=== PATIENT | female | born 1970 | race Caucasian/White ===

== ENCOUNTER 2025-02-14 11:23 | Emergency (ER) | payer SELFPAY ==
[2025-02-14] VITALS (7 sets, daily range): BP systolic 126–140; BP diastolic 69–84; PULSE 95–105; RESP 19–21; TEMP 36.6–37.2; O2SAT 94–98; BMI 29.6
--- NOTE | 2025-02-14 12:01 | EDS_ITS ---
HPI History of Present Illness Chief Complaint: Shortness of Breath Narrative Narrative: Patient is a 54-year-old female past medical history asthma, COPD who presented to the emergency department the chief complaint of cough and shortness of breath. Patient states that for the past 4 days she has been not feeling well she states that she went to urgent care for evaluation and a work note and they state that she needed to come to the emergency department to be evaluated as she was too sick to be evaluated there. Patient states that she has had a dry cough not coughing up anything. Patient denies recent travels denies any history of blood clots. Patient denies any recent steroid use. [facility] Medical History (Updated 02/14/25 @ 13:[address] Tony Booth, ) Asthma COPD (chronic obstructive pulmonary disease) Home Medications ?Medication ?Instructions ?Recorded ?Last Taken ?Type albuterol sulfate 90 mcg/actuation 2 puff inhalation Q 6H PRN 02/14/25 Unknown Rx aerosol inhaler shortness of breath or wheez ing #8.5 grams prednisone 50 mg tablet 50 mg PO DAILY 4 days #4 tab s 02/14/25 Unknown Rx Allergy/AdvReac Type Severity Reaction Status Date / Time codeine Allergy Severe Anaphylaxis Verified 02/14/25 11:28 oxycodone (From OxyContin) AdvReac Severe Bleeding Verified 02/14/25 11:28 morphine AdvReac Intermediate Nausea/Vom/ Verified 02/14/25 11:28 Diarrhea Social History Smoking Status: Never smoker ROS ROS ED ROS Narrative Constitutional: Patient states that she had a fever last night denies any chills, whole body aches Cardiovascular: Denies chest pain or palpitations Respiratory: Complains of cough and shortness of breath as noted above Abdomen: Denies nausea vomit diarrhea : Denies any urinary symptoms Neurological: Denies numbness, weakness, tingling Musculoskeletal: Denies back pain Skin: Denies rashes or lesions EXAM Physical Exam Narrative Exam Narrative: General: Patient was lying in bed rest comfortably did not appear to be in acute distress Head: Atraumatic, normocephalic Eyes: PERRL bilateral, EOMI bilateral, no conjunctival injection noted Neck: Soft, supple, trach midline Cardiovascular: Patient tachycardic with regular rhythm no murmurs gallops rubs noted Respiratory: Diminished breath sounds bilaterally Abdomen: Soft, nondistended, tender to palpation Extremities: +5/5 strength noted in the bilateral upper and lower extremities, radial pulses +2/4 in the bilateral extremities Neurological: Patient follow commands knew that she was at [facility] year is 2024 Skin: Warm, dry, intact no rashes or lesions noted Const Vital Signs: 02/14/25 11:25 02/14/25 12:08 02/14/25 12:08 Temperature 98.9 F Temperature Source Oral Pulse Rate 105 H 95 Respiratory Rate 21 H 20 H Respiratory Effort Respiratory Depth Respiratory Pattern Normal Blood Pressure 126/84 H Blood Pressure Mean 98 Pulse Ox 94 98 Oxygen Delivery Method Room Air Room Air 02/14/25 12:13 02/14/25 12:27 02/14/25 12:27 Temperature 98 F Temperature Source Oral Pulse Rate 96 96 Respiratory Rate 20 H 20 H Respiratory Effort Short of Breath Respiratory Depth Normal Respiratory Pattern Tachypnea Blood Pressure 136/79 H 136/79 H Blood Pressure Mean 98 98 Pulse Ox 96 96 Oxygen Delivery Method 02/14/25 13:00 02/14/25 13:38 Temperature 98 F 97.9 F Temperature Source Oral Pulse Rate 96 104 H Respiratory Rate 20 H 19 H Respiratory Effort Respiratory Depth Respiratory Pattern Blood Pressure 136/69 H 140/73 H Blood Pressure Mean 91 95 Pulse Ox 96 95 Oxygen Delivery Method MDM MDM MDM Narrative Medical decision making narrative: Patient is a 54-year-old female who presented to the emergency department with a chief complaint of cough and shortness of breath. On the differential diagnosis includes but limited to COPD exacerbation, pneumonia, upper respiratory infection secondary viral etiology, ACS. Once workup is obtained reviewed she will be reevaluated. Patient be given DuoNebs and prednisone as well as 30 cc/kg bolus of IV fluids based on ideal body weight as her BMI is 30. Patient CBC was reviewed showed no evidence leukocytosis white blood count normal at 7.2, hemoglobin is 14, platelet count was noted be 258. Patient INR normal at 0.9, PT of 12.6. Patient sodium normal 141, potassium normal at 4, creatinine normal at 0.70. Patient AST and ALT were 20 and 15 respectively. Patient's EKG was reviewed and showed sinus rhythm with a rate of 91 beats per minutes. Patient's chest x-ray reviewed and showed subtle mild bilateral linear interstitial lines can be seen with viral pneumonia otherwise unremarkable chest x-ray this reviewed by myself and by radiology. Patient tested negative for COVID flu and RSV. However I do have suspicion that the patient likely has croup given the nature of her cough clinically. Patient ambulated well here in the emergency department no hypoxia and felt well at her baseline. On reevaluation patient she is feeling better she would like to go home at this point time. She will be given a prescription for prednisone as well as albuterol inhaler and will be referred to a primary care physician. She was encouraged return with worsening symptoms or concerns. She is agreeable to plan all question concerns answered she discharged home in stable condition. Patient is requesting work note which was provided. Lab Data Labs: Laboratory Results - last 24 hr 02/14/25 12:05 WBC 7.2 RBC 4.38 Hgb 14.0 Hct 42.9 MCV 97.9 MCH 32.0 MCHC 32.6 RDW Std Deviation 42.1 RDW Coeff of Mayank 11.6 Plt Count 258 MPV 10.2 Immature Gran % (Auto) 0.400 Neut % (Auto) 58.0 Lymph % (Auto) 26.4 [place] % (Auto) 11.6 H Eos % (Auto) 3.2 Baso % (Auto) 0.4 Absolute Neuts (auto) 4.2 Absolute Lymphs (auto) 1.89 Nucleated RBC % 0 PT 12.6 INR 0.9 APTT 25.2 Sodium 141 Potassium 4.0 Chloride 105 Carbon Dioxide 25.1 Anion Gap 11 BUN 11 Creatinine 0.70 Estim Creat Clear Calc 105.68 Est GFR (MDRD) Non-Af 102 BUN/Creatinine Ratio 15.4 Glucose 111 H Lactic Acid < 1.0 Calcium 9.2 Total Bilirubin 0.30 AST 20 ALT 15 Alkaline Phosphatase 131 H Total Protein 7.5 Albumin 4.2 Globulin 3.3 Albumin/Globulin Ratio 1.3 Radiography Diagnostic Testing: Clinical Impression(s) from Imaging Studies Chest X-Ray 02/14/25 12:20 IMPRESSION: Subtle mild bilateral linear interstitial lines, which can be seen with viral pneumonia. Otherwise unremarkable chest radiograph. Reading Location: [facility] Discharge Plan Triage Chief Complaint: Shortness of Breath Other Complaint: Cold Sx ED Provider: Tony Booth Dx/Rx/DC Orders Clinical Impression: Upper respiratory infection, viral, History of asthma Prescriptions: New prednisone 50 mg tablet 50 mg PO DAILY 4 Days Qty: 4 0RF albuterol sulfate 90 mcg/actuation HFA aerosol inhaler 2 puff inhalation Q6H PRN (Reason: shortness of breath or wheezing) Qty: 8.5 0RF Stand Alone Forms: ED Work / School Excuse Primary Care Provider: Care Physician,No Primary Referrals: Care Physician,No Primary [Primary Care Provider] - Rae Moses, FLOOR NURSE-C [[facility]] - Activity Restrictions/Additional Instructions: Follow-up with the doctor you referred to. Take steroids as prescribed that was sent to your pharmacy and use inhaler as prescribed as well. Return with worsening symptoms or any other concerns Print Language: Cape Verdean Disposition Disposition: Home, Self Care
[2025-02-14] MEDS: Ipratropium/Albuterol Sulfate 3 ML AMPUL.NEB INHALATION ×2 (12:05)
[2025-02-14] MEDS: 0.9% Normal Saline (1000mL) 1,000 ML 999 ML IV (12:06)
[2025-02-14] MEDS: predniSONE 20 MG Tablet 60 MG PO (12:07)
[2025-02-14 12:18] LABS: Absolute Lymphocyte Count 1.89 X10^3/uL (0.83-4.51); Absolute Neutrophil Count 4.2 X10^3/uL (2.0-7.7); Basophil# 0.03 X10^3/uL; Basophil% 0.4 % (0-1); Eosinophil# 0.23 X10^3/uL; Eosinophils% 3.2 % (0-5); Hematocrit 42.9 % (37-47); Lymphocyte # 1.89 X10^3/ul (0.83-4.51); Lymphocyte % 26.4 % (19-41); Mean Corp Hgb Conc 32.6 g/dL (32-36); Mean Corpuscular Volume 97.9 fL (81-99); Mean Platelet Vol. 10.2 fl (6.2-12.0); Monocyte# 0.83 X10^3/uL; Monocyte% 11.6 % (0-10); NRBC Flagged by Analyzer 0 % (0-5); Neutrophil # 4.15 X10^3/uL (2.7-7.7); Platelet Count 258 K/mm3 (150-450); RBC Distribution Width CV 11.6 % (11.6-14.6); RBC Distribution Width SD 42.1 fl (35.1-43.9); Red Blood Count 4.38 M/mm3 (4.2-5.4); White Blood Count 7.2 K/mm3 (4.4-11.0)
--- NOTE | 2025-02-14 12:20 | RAD_ITS ---
PROCEDURE: CHEST PA AND LATERAL 02/14/2025 REASON FOR EXAM: SOB, COUGH TECHNIQUE: Frontal and lateral views of the chest. COMPARISON: None. FINDINGS: Hardware: None. Heart: The heart size is normal. Mediastinum: The mediastinal contour is unremarkable. Lungs: Subtle mild bilateral linear interstitial lines, greatest within the lower lobes. No pleural effusion or pneumothorax. Bones: Degenerative changes are identified within the thoracic spine. RAD/Chest PA and Lateral IMPRESSION: Subtle mild bilateral linear interstitial lines, which can be seen with viral p neumonia. Otherwise unremarkable chest radiograph. Reading Location: [id number]
[2025-02-14 12:26] LABS: International Normalized Ratio 0.9; Partial Thromboplast Time 25.2 Seconds (24.1-36.2); Prothrombin Time (Protime)PT. 12.6 SECONDS (11.7-14.9)
[2025-02-14 12:50] LABS: ALB/GLOB Ratio 1.3 RATIO (0.9-2.4); AST(SGOT) 20 U/L (<=31); Alanine Aminotransfer ALT/SGPT 15 U/L (<=34); Albumin, Serum 4.2 g/dL (3.5-5.0); Alkaline Phosphatase 131 U/L (35-104); Anion Gap 11 (5-15); BUN 11 mg/dL (4-19); BUN/Creat Ratio 15.4 RATIO (10-20); Calcium,Total 9.2 mg/dL (7.6-11.0); Carbon Dioxide 25.1 mmol/L (21.0-32.0); Chloride 105 mmol/L (98-108); EST Glomerular Filtration Rate 102 (>60); Estimated Creatinine Clearance 105.68 ml/min (50-250); Globulin 3.3 g/dL (2.2-4.2); Glucose 111 mg/dL (70-99); Protein, Total 7.5 g/dL (5.9-8.4); Sodium Level 141 mmol/L (133-145)
[2025-02-14 13:18] LABS: Lactic Acid < 1.0 mmol/L (0.0-2.0)
== END 2025-02-14 14:09 | disposition home or self-care (01) ==
PROVIDERS: Emergency Provider Emergency Medicine; Referring Provider Emergency Medicine; Visit Provider Emergency Medicine
DX: J06.9 Acute upper respiratory infection, unspecified (principal); J44.9 Chronic obstructive pulmonary disease, unspecified
CPT/HCPCS: 71046; 80053; 83605; 85025; 85610; 85730; 87040; 87631; 93005; 96360; 99285; A4216

== ENCOUNTER 2025-05-29 15:54 | Emergency (ER) | payer SELFPAY ==
[2025-05-29 15:57] VITALS: BP 150/83; PULSE 119; RESP 14; TEMP 36.3; O2SAT 100; BMI 30.9
--- NOTE | 2025-05-29 15:57 | EKG12_ITS ---
Test Reason : Blood Pressure : */* mmHG Vent. Rate : 122 BPM Atrial Rate : 122 BPM P-R Int : 144 ms QRS Dur : 76 ms QT Int : 344 ms P-R-T Axes : 62 -29 30 degrees QTcB Int : 490 ms Sinus tachycardia Possible Left atrial enlargement Minimal voltage criteria for LVH, may be normal variant ( R in aVL ) Borderline ECG Confirmed by MAYCO KARIMI, KT ([id number]), film and video editor JHONY ROMO ([id number]) on 05/30/2025 9:29:16 AM Referred By: Confirmed By: KT MAO MD
[2025-05-29 16:02] VITALS: BP 124/72; PULSE 111; RESP 21; TEMP 36.5; O2SAT 98
--- NOTE | 2025-05-29 16:10 | EDS_ITS ---
HPI History of Present Illness Chief Complaint: Shortness of Breath Detail of Chief Complaint: Shortness of breath that started at work. Informant: patient and EMS Onset/Context/Timing Onset: Today (Awoke not feeling well. She has used her inhaler 4 times since awakening. She reports no improvement.) Context: sudden Timing: Continuous Quality: Positive for Dyspnea on exertion; Negative for Orthopnea, PND or Wheezing Current Severity: Mild Maximum Severity: Moderate Associated Symptoms cough; Negative for rhinorrhea, post nasal drip, ear pain, fever, sore throat, subjective, chills, sweats, clear sputum, white sputum, yellow sputum or green sputum Chest Pain: Positive for None Narrative Narrative: Patient is a 55-year-old woman who states she has a history of COPD. She has not smoked since age of 12. She nods no to fever or chills. She nods no to rhinorrhea, congestion, postnasal drip and sore throat. She does endorse shortness of breath and nonproductive cough. She has no history of PE or DVT. She has no history degree of cardiac symptoms. She has no history of hypertension. She has no history of reflux. She denies leg pain, swelling or discoloration. She denies any type of pain in her chest or abdomen. PE Risk Factors: Negative for Cancer, OCP + Smoking + > 35, Prior DVT or PE, Recent immobilization, Recent surgery or Recent travel Prior similar symptoms: Yes (COPD) Recent Illness/Hospitalization: No [facility] Medical History Asthma COPD (chronic obstructive pulmonary disease) Home Medications ?Medication ?Instructions ?Recorded ?Last Taken ?Type albuterol sulfate 90 mcg/actuation 2 puff inhalation Q 6H PRN 02/14/25 Unknown Rx aerosol inhaler shortness of breath or wheez ing #8.5 grams diphenhydramine HCl 50 mg tablet 50 mg PO TID 05/29/25 Unknown History (Benadryl Allergy) melatonin 10 mg capsule 10 mg PO QHS 05/29/25 Unknow n History Allergy/AdvReac Type Severity Reaction Status Date / Time codeine Allergy Severe Anaphylaxis Verified 02/14/25 11:28 oxycodone (From OxyContin) AdvReac Severe Bleeding Verified 02/14/25 11:28 morphine AdvReac Intermediate Nausea/Vom/ Verified 02/14/25 11:28 Diarrhea Social History (Updated 05/29/25 @ 16:[address] Ross Rahman MD) household members: none Smoking Status: Never smoker ROS ROS ED Constitutional Constitutional ED: Denies chills, fever(s), sweats or weight loss Eyes Eyes: Denies blurry vision or change in vision ENT ENT ED: Denies ear pain, rhinorrhea or sore throat Cardiovascular Cardiovascular: Denies chest pain, orthopnea, palpitations, paroxysmal nocturnal dyspnea or racing heartbeat Respiratory/Chest Respiratory/Chest: Reports cough, dyspnea and dyspnea on exertion; Denies orthopnea, paroxysmal nocturnal dyspnea or sputum Gastrointestinal Gastrointestinal: Denies abdominal pain, constipation, diarrhea, melena, nausea or vomiting Musculoskeletal Musculoskeletal: Denies arthralgias or myalgias Integumentary Denies rash Neurologic Neurologic: Denies paresthesias or weakness Endocrine Endocrinology: Denies cold intolerance or heat intolerance Hematologic/Lymphatic Hematologic/Lymphatic: Denies easy bleeding or easy bruising EXAM Physical Exam Const Vital Signs: 05/29/25 15:57 05/29/25 16:02 05/29/25 16:25 Temperature 97.4 F L 97.7 F L Temperature Source Oral Oral Pulse Rate 119 H 111 H Respiratory Rate 14 21 H Respiratory Effort Short of Breath Labored Respiratory Depth Normal Respiratory Pattern Normal Blood Pressure 150/83 H 124/72 H Blood Pressure Mean 105 89 Pulse Ox 100 98 Oxygen Delivery Method Room Air Room Air Room Air 05/29/25 17:02 05/29/25 18:00 Temperature 97.8 F 98.1 F Temperature Source Oral Oral Pulse Rate 101 H 99 Respiratory Rate 17 14 Respiratory Effort Respiratory Depth Respiratory Pattern Blood Pressure 119/79 112/91 H Blood Pressure Mean 92 98 Pulse Ox 101 100 Oxygen Delivery Method Room Air Room Air Positive well nourished Constitutional Narrative: Vital signs are noted. Patient is breathing much more rapidly than 14 times a minute. She is not hypoxic. She is tachycardic. Her blood pressure is elevated as well. She seems slightly anxious. General Appearance ED: Negative for pallor HEENT Reports moist mucous membranes HEENT Narrative: Head is atraumatic no cephalic. Ears normal. Nares patent. Posterior pharynx is normal. Eyes PERRL and EOMs intact bilaterally General Eye ED: Negative for pale conjunctiva or scleral icterus Neck no lymphadenopathy, supple, no meningeal signs and no JVD Neck Narrative: Trachea is midline. Patient has dysphonia. There is no inspiratory expiratory stridor. Resp normal respiratory effort and clear to auscultation bilaterally Auscultation: Negative for diminished lung sounds Cardio regular rhythm, S1 normal heart sound, S2 normal heart sound and no murmurs Rate: tachycardic GI non-tender, non-distended and no masses Auscultation: normoactive bowel sounds Palpation: soft Back/Spine no CVA tenderness and normal to inspection Extremity normal to inspection Extremity Narrative: There is no asymmetry, swelling, discoloration, leg vein distention, palpable cords or tenderness along the distribution of the deep venous system. Neuro oriented x3, CN's II-XII intact bilaterally and no sensory deficits noted Sensorium / Orientation: alert Psych mental status grossly normal Mood & Affect: anxious Skin no wounds and skin turgor normal General Skin Exam: Negative for jaundice or pallor Lesions: no lesions Rashes: no rashes MDM MDM MDM Narrative Medical decision making narrative: Patient presents with dyspnea. Since she is tachycardic and tachypneic and greater the age of 55 she is not PERC negative. Will obtain a D-dimer. Patient's lungs are clear to auscultation. Breath sounds are symmetric. Will obtain chest x-ray to evaluate for possible pneumothorax, spontaneous. This may represent anginal equivalent. With her having dysphonia specked this is probably a viral illness. However would not expect her to be tachycardic tach ypneic especially with no abnormal oscillatory findings of her lungs. Only visit to [facility] was January of this year. She was seen by Dr. Tony Booth for upper respiratory tract infection. History & Record Review Additional record(s) reviewed:: Prior ED visit and Prior labs Lab Data Attestation: I reviewed the patient's lab results. Lab results narrative: CBC is unremarkable. Return of neutrophils is below normal and monocytes is elevated. Labs: Laboratory Results - last 24 hr 05/29/25 05/29/25 05/29/25 16:10 16:45 18:05 WBC 6.0 RBC 4.51 Hgb 14.4 Hct 43.6 MCV 96.7 MCH 31.9 MCHC 33.0 RDW Std Deviation 42.5 RDW Coeff of Mayank 12.0 Plt Count 272 MPV 10.9 Immature Gran % (Auto) 0.200 Neut % (Auto) 42.2 L Lymph % (Auto) 41.0 [place] % (Auto) 13.2 H Eos % (Auto) 2.7 Baso % (Auto) 0.7 Absolute Neuts (auto) 2.5 Absolute Lymphs (auto) 2.45 Nucleated RBC % 0 D-Dimer Quant (PE/DVT) Cancelled 0.27 Sodium 142 Potassium 4.4 Chloride 104 Carbon Dioxide 23.4 Anion Gap 15 BUN 15 Creatinine 0.77 Estim Creat Clear Calc 96.87 Est GFR (MDRD) Non-Af 90 BUN/Creatinine Ratio 19.6 Glucose 148 H Calcium 10.0 Troponin T High Sens 6 Troponin T Hi Sens 2 Hr 7 Your troponin is normal at 7 with a delta of 1. 2 normal troponin levels normal delta normal EKG cardiac etiology has been ruled out. Suspect this is due to a viral upper respiratory infection. Radiography Chest X-Ray - ED: 2 View, Read by ED Physician, Normal, Heart, Lungs (Minimal chronic changes at best. There is no effusion, infiltrate or pneumothorax.), M ediastinum, Bony Structures and No Acute Disease EKG Initial EKG: Attestation: I personally reviewed and interpreted this EKG as follows: Interpretation: Sinus Tachycardia (Rate is 122. Borderline LVH by voltage criteria. ME interval is 144. QRS duration 76 ms. QT duration 244 ms. [place] is normal. EKG is suggestive of left atrial enlargement as well.) Discharge Plan Triage Chief Complaint: Shortness of Breath ED Provider: Ross Rahman Dx/Rx/DC Orders Clinical Impression: Acute viral laryngitis, Sinus tachycardia, Acute dyspnea, History of asthma, Elevated blood-pressure reading without diagnosis of hypertension Instructions: ED Hypertension, To Be Confirmed, ED Laryngitis, ED URI, Viral, No Abx (Adult) Prescriptions: No Action albuterol sulfate 90 mcg/actuation HFA aerosol inhaler 2 puff inhalation Q6H PRN (Reason: shortness of breath or wheezing) Qty: 8.5 0RF melatonin 10 mg capsule 10 mg PO QHS Benadryl Allergy 50 mg tablet 50 mg PO TID Stand Alone Forms: ED Work / School Excuse Primary Care Provider: Care Physician,No Primary Referrals: Care Physician,No [facility] - 3-5 Days if not improving Print Language: Mongolian Disposition Disposition: Home, Self Care
--- NOTE | 2025-05-29 16:15 | RAD_ITS ---
PROCEDURE: CHEST PA AND LATERAL 05/29/2025 REASON FOR EXAM: SHORTNESS OF BREATH, TACHYCARDIA TECHNIQUE: CHEST PA AND LATERAL COMPARISON: 02/14/2025. FINDINGS: The heart is normal in size. The lungs are clear. No pleural effusion or pneumothorax. No acute osseous abnormalities. RAD/Chest PA and Lateral IMPRESSION: No acute cardiopulmonary abnormalities. Reading Location: [id number]
[2025-05-29 16:25] VITALS: O2SAT 100
[2025-05-29 16:37] LABS: Hematocrit 43.6 % (37-47); Hemoglobin 14.4 g/dL (12.0-15.0); Immature Granulocytes Count 0.010 X10^3/uL (0.0-0.0); Mean Corp Hgb Conc 33.0 g/dL (32-36); Mean Corpuscular Volume 96.7 fL (81-99); Mean Platelet Vol. 10.9 fl (6.2-12.0); NRBC Flagged by Analyzer 0 % (0-5); Platelet Count 272 K/mm3 (150-450); RBC Distribution Width CV 12.0 % (11.6-14.6); RBC Distribution Width SD 42.5 fl (35.1-43.9); Red Blood Count 4.51 M/mm3 (4.2-5.4); White Blood Count 6.0 K/mm3 (4.4-11.0)
[2025-05-29 16:59] LABS: Anion Gap 15 (5-15); BUN 15 mg/dL (4-19); BUN/Creat Ratio 19.6 RATIO (10-20); Calcium,Total 10.0 mg/dL (7.6-11.0); Carbon Dioxide 23.4 mmol/L (21.0-32.0); Chloride 104 mmol/L (98-108); Estimated Creatinine Clearance 96.87 ml/min (50-250); Glucose 148 mg/dL (70-99); Potassium 4.4 mmol/L (3.3-5.1); Troponin T High Sensitivity 6 ng/L (<=14)
[2025-05-29 17:02] VITALS: BP 119/79; PULSE 101; RESP 17; TEMP 36.6; O2SAT 101
--- NOTE | 2025-05-29 17:11 | CM.ED ---
Social Work SW was notified that patient had questions regarding her medicaid application. SW entered room and introduced self to patient. Patient stated that she had moved into [facility] from another [facility], [facility] and did not know that her medicaid had . Patient states that she has applied twice online but has not heard from anyone. SW provided patient with the phone number and address to [facility] to help patient follow up with application. Patient was thankful for information. No further needs identified at this time. Edie Howard, NURSE RECRUITER, SPECIAL EVENTS DRIVER
[2025-05-29 17:15] LABS: D-Dimer Quantitative (DVT/PE) 0.27 FEU/ug/m (0.27-0.49)
[2025-05-29 18:00] VITALS: BP 112/91; PULSE 99; RESP 14; TEMP 36.7; O2SAT 100
[2025-05-29 18:33] LABS: Troponin T High Sens 2 HR 7 ng/L (<=14)
[2025-05-29 18:44] VITALS: BP 113/84; PULSE 94; RESP 19; TEMP 36.9; O2SAT 97
== END 2025-05-29 18:50 | disposition home or self-care (01) ==
PROVIDERS: Emergency Provider Emergency Medicine; Visit Provider Emergency Medicine
DX: J04.0 Acute laryngitis (principal); J44.9 Chronic obstructive pulmonary disease, unspecified; R00.0 Tachycardia, unspecified; R03.0 Elevated blood-pressure reading, without diagnosis of hypertension; R06.00 Dyspnea, unspecified
CPT/HCPCS: 71046; 80048; 84484; 85025; 85379; 93005; 99285; A4216